=== PATIENT | male | born 1985 | race Caucasian/White ===

== ENCOUNTER 2018-10-24 15:08 | Emergency (ER) | payer OTHER ==
[~2018-10-24] VITALS: Ht 180.3 cm; Wt 75.8 kg
[2018-10-24 15:51] LABS: HEMATOCRIT 45.8 % (42.0-52.0); HEMOGLOBIN 15.9 gm/dL (14.0-18.0); MCH 30.4 pg (26.0-34.0); MCHC 34.7 g/dL (28.0-37.0); MCV 87.7 fL (80.0-100.0); RBC 5.22 mil/uL (4.50-6.00); RDW 13.1 % (10.5-14.5)
[2018-10-24 16:12] LABS: ANION GAP 8 mmol/L (7-16); BUN 13 mg/dL (7-18); CALCIUM 9.4 mg/dL (8.5-10.1); CHLORIDE 104 mmol/L (98-107); CO2 28 mmol/L (21-32); CREATININE 1.1 mg/dL (0.7-1.3); GLUCOSE 103 mg/dL (74-106); SODIUM 140 mmol/L (136-145)
[2018-10-24 16:21] LABS: TROPONIN-I <0.06 ng/mL (<0.06)
[2018-10-24 16:40] VITALS: BP 119/75
--- NOTE | 2018-10-26 15:15 | EKG ---
[address] [address] ELECTROCARDIOGRAM REPORT Name: MECCA BRYSON Room #: DEP Lynne#: [id number] ������������������ Admission: 10/24/18 ������������������ Attend Phys: Discharge: 10/24/18 ������������������ Date of : 83 Report #: [id number] ����������������������������������������������������������������� [id number] THIS REPORT FOR: //name// [facility] ED Test Date: 2018-10-24 Test Time: 15:19:01 Pat Name: MECCA BRYSON Department: Room: Gender: M Interventional Nurse: KIERA : 1985 Requested By: Apryl Spaulding Order Number: [id number] MD: Ced Meyers Measurements Intervals [place] Rate: 73 P: 29 [place]: 122 QRS: 51 QRSD: 96 T: 18 QT: 365 QTc: 403 Interpretive Statements Sinus rhythm Normal tracing No previous ECG available for comparison Electronically Signed On 10-26-2018 15:15:30 CDT by Ced Meyers [email or web address] ��������������������������������������������� <ELECTRONICALLY SIGNED> ���������������������������������������� By: Ced Meyers MD, [facility] ��������������������������������������������� 10/26/18 1515 1519 1519 Ced Meyers MD, FACC /EPI
== END 2018-10-24 16:40 | disposition home or self-care (01) ==
LOC: ER 15:08
PROVIDERS: Physician Assistant
DX: R07.89 Other chest pain (principal)